=== PATIENT | male | born 2005 | race Caucasian/White ===

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

== ENCOUNTER → 2025-04-24 07:07 | Outpatient (REF) | payer BC, SELFPAY ==
[2025-04-24 10:02] LABS: Hematocrit 44.7 % (39.0-52.0); Hemoglobin 15.3 g/dL (13.0-18.0); Mean Corp Hgb Conc. 34.2 g/dL (33.0-37.0); Mean Corpuscular Volume 85.8 fL (80.0-94.0); Nucleated Red Blood Cells % 0 % (-); Platelet Count 194 10^3/uL (130-400); Red Cell Dist. Width 12.2 % (11.5-14.5)
[2025-04-24 10:24] LABS: ALT (SGPT) 56 U/L (0-50); AST (SGOT) 65 U/L (17-59); Albumin 4.4 g/dl (3.5-5.0); Alkaline Phosphatase 53 U/L (38-126); Blood Urea Nitrogen 23 mg/dl (9-20); Calcium 9.3 mg/dl (8.4-10.2); Carbon Dioxide 29 mmol/L (22-30); Chloride 104 mmol/L (98-107); Glucose 94 mg/dl (70-99); HDL Cholesterol 71 mg/dl; LDL Cholesterol, Calculated 76 mg/dl; Potassium 4.1 mmol/L (3.5-5.1); Sodium 138 mmol/L (135-145); Total Protein 6.9 g/dl (6.3-8.2); Very Low Density Lipoprotein 20 mg/dl (0-30); eGFR > 60.00
== END ==
LOC: HWLAB 07:07
PROVIDERS: ATTENDING PHYSICIAN Registered Nurse
DX: Z00.00 Encounter for general adult medical examination without abnormal findings (principal)
CPT/HCPCS: 36415; 80053; 80061; 84439; 84443; 85025

== ENCOUNTER → 2025-07-09 06:35 | Outpatient (REF) | payer BC, SELFPAY ==
[2025-07-09 10:44] LABS: ALT (SGPT) 23 U/L (0-50); AST (SGOT) 28 U/L (17-59); Albumin 4.5 g/dl (3.5-5.0); Alkaline Phosphatase 54 U/L (38-126); Blood Urea Nitrogen 21 mg/dl (9-20); Calcium 9.7 mg/dl (8.4-10.2); Carbon Dioxide 29 mmol/L (22-30); Chloride 102 mmol/L (98-107); Glucose 93 mg/dl (70-99); Iron 151 ug/dl (49-181); Potassium 4.1 mmol/L (3.5-5.1); Sodium 137 mmol/L (135-145); Total Protein 7.0 g/dl (6.3-8.2); eGFR > 60.00
[2025-07-09 10:53] LABS: Total Iron Binding Capacity 292 ug/dl (261-462)
[2025-07-09 12:41] LABS: Cortisol, Random 15.0 ug/dl
[2025-07-09 12:45] LABS: Ferritin 36.5 ng/ml (17.9-464.0)
== END ==
LOC: HWLAB 06:35
PROVIDERS: ATTENDING PHYSICIAN Registered Nurse
DX: R79.89 Other specified abnormal findings of blood chemistry (principal); L65.9 Nonscarring hair loss, unspecified
CPT/HCPCS: 36415; 80053; 82533; 82626; 82728; 83540; 83550; 84270; 84402; 84403; 84443; 84630